=== PATIENT | female | born 1960 | race African-American/Black ===

== ENCOUNTER 2019-09-12 23:43 | Emergency (ER) | payer OTHER ==
[~2019-09-12] VITALS: Ht 165.1 cm; Wt 77.0 kg
[2019-09-13] MEDS ORDERED: PANTOPRAZOLE SODIUM 40 MG/VIAL IV STA (01:15)
[2019-09-13] MEDS ORDERED: METOCLOPRAMIDE HCL 10MG/2ML VIAL IV STA (01:15)
[2019-09-13 01:49] LABS: BASOPHILS % 0.5 % (0.0-2.0); HEMATOCRIT. 34.7 % (36.0-48.0); HEMOGLOBIN. 11.7 g/dL (12.0-16.0); LYMPHOCYTES % 29.8 % (20.0-50.0); MEAN CORPUSCULAR HEMOGLOBIN 28.7 pg (28.0-32.0); MEAN PLATELET VOLUME 7.3 fl (7.4-10.4); MONOCYTES % 3.1 % (2.0-8.0); NEUTROPHILS % 66.6 % (40.0-76.0); PLATELET 373 x1000/uL (130-400); RED BLOOD CELL COUNT 4.09 mill/uL (4.2-5.4); RED CELL DISTRIBUTION WIDTH 12.7 % (11.6-14.6)
[2019-09-13 02:23] LABS: CHLORIDE 98 mEq/L (98-107)
[2019-09-13] MEDS ORDERED: SODIUM CHLORIDE 0.9% 1,000 ML IV ONE (04:26)
[2019-09-13 06:11] VITALS: BP 136/84
== END 2019-09-13 06:21 | disposition home or self-care (01) ==
LOC: ER 23:43
DX: I12.9 Hypertensive chronic kidney disease with stage 1 through stage 4 chronic kidney disease, or unspecified chronic kidney disease (principal); E11.22 Type 2 diabetes mellitus with diabetic chronic kidney disease; N18.3 Chronic kidney disease, stage 3 (moderate); R10.13 Epigastric pain; R51 Headache
CPT/HCPCS: 36415; 71045; 80053; 83605; 83690; 84484; 85025; 93005; 96365; 96375; 99285; C9113; J2765; J7030